=== PATIENT | male | born 1950 | race Caucasian/White ===

== ENCOUNTER → 2016-10-21 | Outpatient (CLI) | payer BC | END | disposition home or self-care (01) | LOC: CDC 08:11 | DX: Z01.810 Encounter for preprocedural cardiovascular examination (principal) | CPT/HCPCS: 93000 ==

== ENCOUNTER → 2017-06-02 | Outpatient (CLI) | payer BC | END | disposition home or self-care (01) | LOC: CDC 09:09 | DX: Z01.810 Encounter for preprocedural cardiovascular examination (principal) | CPT/HCPCS: 93000 ==

== ENCOUNTER 2017-06-12 05:28 | Day surgery (SDC) | payer BC ==
[~2017-06-12] VITALS: Ht 172.7 cm; Wt 78.5 kg
[~2017-06-12 05:28] MED LIST: ACID REDUCER75 MG PO; BENADRYL25 MG PO; L-LYSINE500 M1 PO; LIPITOR40 MG PO; LO-DOSE ASPIRIN81 M2 PO; LOTENSIN20 MG PO; MULTI-VITAMIN-1 EACH PO; NIASPAN,SLO-N1000 MG PO; VITAMIN D31000 UNI2 PO; ZOVIRAX400 MG PO
[2017-06-12 06:15] VITALS: BP 131/84
[2017-06-12] MEDS ORDERED: NORCO 5/3251 TABLET PO (08:40)
[2017-06-12 09:42] VITALS: BP 137/85
[2017-06-12 10:36] VITALS: BP 149/87
== END 2017-06-12 10:45 | disposition home or self-care (01) ==
LOC: SDC 05:28
PROC: 0YU50JZ Supplement Right Inguinal Region with Synthetic Substitute, Open Approach (ICD-10-PCS; principal; 2017-06-12)
DX: K40.91 Unilateral inguinal hernia, without obstruction or gangrene, recurrent (principal); I10 Essential (primary) hypertension; K21.9 Gastro-esophageal reflux disease without esophagitis; Z88.0 Allergy status to penicillin; Z79.82 Long term (current) use of aspirin
CPT/HCPCS: C1781; J0690; J1100; J1885; J2405; J2710; S0020